=== PATIENT | female | born 1975 | race Two or more races ===

== ENCOUNTER 2022-06-18 19:33 | Inpatient (IN) | payer MEDICAID, OTHER ==
[~2022-06-18] VITALS: Ht 165.1 cm; Wt 93.3 kg
[2022-06-18 20:49] LABS: Basophils # (auto) 0.1 10 ^3/uL (0-0.2); Basophils % (auto) 1.2 % (0.0-2.0); Eosinophils # (auto) 0.1 10 ^3/uL (0-0.8); Eosinophils % (auto) 2.6 % (0.0-7.0); Hematocrit 31.2 % (36.0-46.0); Hemoglobin 10.4 g/dL (12.2-16.2); Lymphocytes # (auto) 1.2 10 ^3/uL (0.4-5.4); Lymphocytes % (auto) 24.7 % (10.0-50.0); Mean Corpuscular Hemoglobin 32.9 pg (28.0-32.0); Mean Corpuscular Hgb Conc. 33.2 g/dL (32.0-36.0); Monocytes # (auto) 0.3 10 ^3/uL (0-1.3); Monocytes % (auto) 5.4 % (0.0-12.0); Neutrophils # (auto) 3.4 10 ^3/uL (1.6-8.6); Neutrophils % (auto) 66.1 % (37.0-80.0); Red Blood Cells 3.15 10^6/uL (4.0-5.20); Red Cell Distribution Width 13.4 % (11.8-14.3); White Blood Cell 5.1 10^3/uL (4.4-10.8)
[2022-06-18 21:07] LABS: Albumin 3.7 g/dL (3.4-5.0); BUN/Creatinine Ratio 4.6; Calcium 9.7 mg/dL (8.5-10.1)
[2022-06-18 21:10] LABS: Bilirubin, Total 0.6 mg/dL (0.2-1.0)
[2022-06-18] MEDS ORDERED: ASPirin 325 MG TAB PO ONE (22:00)
[2022-06-18] MEDS ORDERED: NITROGLYCERIN 0.4 MG SL TAB SL ONE (22:00)
[2022-06-18] MEDS ORDERED: ONDANSETRON HCL 4 MG/2 ML VIAL IV PRN (22:15)
[2022-06-18] MEDS ORDERED: ACETAMINOPHEN 325 MG TAB PO PRN (22:15)
[2022-06-18] MEDS ORDERED: hydrALAZINE HCL 20 MG/ML VL IV PRN (22:15)
[2022-06-18] MEDS ORDERED: NITROGLYCERIN 0.4 MG SL TAB SL PRN ×2 (23:30→23:45)
[2022-06-19] MEDS: MORPHINE SULFATE INJ 2 MG/ml SYRG IV PRN ×3 (00:42→09:44)
[2022-06-19] MEDS ORDERED: MORPHINE SULFATE INJ 2 MG/ml SYRG ONE (02:17)
[2022-06-19 04:43] LABS: Basophils # (auto) 0.1 10 ^3/uL (0-0.2); Eosinophils # (auto) 0.1 10 ^3/uL (0-0.8); Eosinophils % (auto) 2.2 % (0.0-7.0); Hematocrit 27.4 % (36.0-46.0); Hemoglobin 9.4 g/dL (12.2-16.2); Lymphocytes # (auto) 1.2 10 ^3/uL (0.4-5.4); Lymphocytes % (auto) 20.3 % (10.0-50.0); Mean Corpuscular Hemoglobin 33.5 pg (28.0-32.0); Mean Corpuscular Hgb Conc. 34.2 g/dL (32.0-36.0); Mean Corpuscular Volume 97.9 fL (80.0-100.0); Monocytes # (auto) 0.4 10 ^3/uL (0-1.3); Monocytes % (auto) 7.2 % (0.0-12.0); Neutrophils # (auto) 4.2 10 ^3/uL (1.6-8.6); Neutrophils % (auto) 69.3 % (37.0-80.0); Red Cell Distribution Width 13.2 % (11.8-14.3)
[2022-06-19 05:01] LABS: Potassium 4.8 mmol/L (3.5-5.1)
[2022-06-19 05:09] LABS: Albumin 3.4 g/dL (3.4-5.0); BUN/Creatinine Ratio 4.6; Calcium 9.7 mg/dL (8.5-10.1)
[2022-06-19 05:12] LABS: Bilirubin, Total 0.5 mg/dL (0.2-1.0); Total Protein 6.4 g/dL (6.4-8.2)
[2022-06-19] MEDS: SODIUM CHLOR 0.9% PF (SALINE LOCK) 10ML VIAL/SYR IV SCH ×3 (06:22→21:30)
[2022-06-19] MEDS: SEVELAMER 800 MG TAB PO SCH ×4 (08:00→17:46)
[2022-06-19] MEDS: B-COMPLEX W/ C & FOLIC ACID(NEPHROVITE TAB) PO SCH (09:43)
[2022-06-19] MEDS: ASPirin 81 mg TAB PO SCH (09:43)
[2022-06-19] MEDS ORDERED: SEVE800T20 PO (14:18)
[2022-06-19] MEDS ORDERED: MIDO5TAB3 PO (14:18)
[2022-06-19] MEDS ORDERED: SUCR5CHW PO (14:18)
[2022-06-19 15:00] VITALS: BP 110/64
[2022-06-19 16:35] VITALS: BP 109/74
[2022-06-19] MEDS: HYDROcodone-ACET 5/325MG TAB PO PRN (17:47)
[2022-06-19] MEDS: DOCUSATE SOD 100 MG CAP PO PRN (17:48)
[2022-06-19 22:00] VITALS: BP 116/71
[2022-06-20 05:00] VITALS: BP 124/77
[2022-06-20] MEDS: SODIUM CHLOR 0.9% PF (SALINE LOCK) 10ML VIAL/SYR IV SCH (05:32)
[2022-06-20] MEDS ORDERED: SODIUM CHL 0.9% 1000 ML BAG XX ONE (07:00)
[2022-06-20 08:46] VITALS: BP 141/82
[2022-06-20] MEDS: SEVELAMER 800 MG TAB PO SCH ×2 (08:50→11:58)
[2022-06-20] MEDS: ASPirin 81 mg TAB PO SCH (09:34)
[2022-06-20] MEDS: B-COMPLEX W/ C & FOLIC ACID(NEPHROVITE TAB) PO SCH (09:34)
[2022-06-20] MEDS: HYDROcodone-ACET 5/325MG TAB PO PRN (09:35)
[2022-06-20] MEDS: DOCUSATE SOD 100 MG CAP PO PRN (09:35)
[2022-06-20 12:00] VITALS: BP 125/81
[2022-06-20 12:14] VITALS: BP 138/80
[2022-06-20] MEDS ORDERED: EPOETIN ALFA-EPBX 10,000 UNIT/1ML VIAL SC ONE (21:00)
== END 2022-06-20 13:00 | disposition home or self-care (01) | DRG 203 ==
LOC: EDBD 19:57 → ER 19:57 → UNDOADMIN 23:36 → TELE 23:36 → TELE-CENTR 06-19 13:55
PROVIDERS: ADMIT Nurse Practitioner Family; ATTEND Internal Medicine
DX: M94.0 Chondrocostal junction syndrome [Tietze] (principal); I12.0 Hypertensive chronic kidney disease with stage 5 chronic kidney disease or end stage renal disease; Q61.3 Polycystic kidney, unspecified; N18.6 End stage renal disease; D63.1 Anemia in chronic kidney disease; Z20.822 Contact with and (suspected) exposure to COVID-19; M79.7 Fibromyalgia; M89.8X9 Other specified disorders of bone, unspecified site; Z99.2 Dependence on renal dialysis; Z90.49 Acquired absence of other specified parts of digestive tract
CPT/HCPCS: 36415; 71045; 80053; 84484; 85025; 87081; 87426; 93005; 96374; 96375; G0378; J2405